=== PATIENT | male | born 1970 | race Caucasian/White ===

== ENCOUNTER 2024-04-06 08:19 | Emergency (ER) | payer BC, SELFPAY ==
[2024-04-06 08:39] VITALS: BP 158/93; PULSE 82; RESP 18; TEMP 36.3; O2SAT 98; BMI 29.8
--- NOTE | 2024-04-06 09:03 | ED.BACK ---
HPI - Back Pain/Injury General Time Seen by Provider: 09:03 Date Seen: 04/06/24 Chief Complaint: Back Injury/Pain Stated Complaint: fall/back pain and spasm Time Seen by Provider: 04/06/24 09:03 Source: patient Mode of arrival: ambulatory Limitations: no limitations History of Present Illness HPI Narrative: Tenzin is a 54-year-old gentleman previously healthy with a history of heterozygous factor 5 who comes to the emergency room with his for evaluation of intense left-sided back pain after a fall 36 hours ago. Tenzin's notes that they were at their cabin in [place] doing some construction this weekend. On Saturday night April 04 patient fell down 3 stairs as he was wearing socks. No prodromal symptoms. He fell hitting the left side of his back causing intense and immediate pain. Denies any head or neck injury. No loss of consciousness. At that time he took ibuprofen and try to stay in bed but eventually needed to go to the ER in [place]. X-rays of the chest and back at that time were negative. He was given hydrocodone and discharged home. Unfortunately, he had continued pain and thus has been using oxycodone and hydroxyzine that his had from a previous illness. He is still experiencing intense moments of spasm and with any coughing has significant discomfort. The majority of pain appears to be on the left side of his mid back. He now notes this pain is radiating around to his front and includes his left upper quadrant. No lower extremity symptoms with the exception of right ankle discomfort that he notes is much less than what he is experiencing in his back. He and his both feel that something is wrong. Patient has had occasional coughing. No vomiting. Patient does chew tobacco. Does not smoke. Occasional alcohol use. present loving and supportive. Related Data Previous Rx's ?Medication ?Instructions ?Recorded oxycodone 5 mg capsule 5 mg PO Q4H PRN pain #30 caps 04/06/24 Allergies Allergy/AdvReac Type Severity Reaction Status Date / Time No Known Drug Allergies Allergy Verified 04/06/24 08:48 Review of Systems Status of ROS: Reports: 10 or more systems reviewed and unremarkable except as noted in History and below Const: Denies: fever or chills Eyes: Denies: change in vision ENMT: Denies: neck pain, throat swelling or nasal congestion Cardio: Denies: chest pain or shortness of breath with exertion Resp: Denies: shortness of breath GI: Reports: abdominal pain; Denies: nausea or vomiting : Denies: painful urination Musculo: Denies: neck pain Allergy/Immuno: Denies: throat swelling Exam Narrative: Exam Narrative: Alert and oriented. Very guarded in any movement. EOM is full. Head is atraumatic normocephalic. No midline cervical tenderness with palpation. Range of motion is full. Heart with regular rate and rhythm and lungs are with very shallow breathing. Very difficult to ascertain good breath sounds. Abdomen is soft. Examination of the back shows superficial abrasion healing on the left shoulder. No thoracic or lumbar discomfort with palpation. Pain appears to be just to the left of ribs 7 through 10. Lower extremities show full movement. Right lower extremity with some edema but patient is able to move ankle without difficulty. No point tenderness over the malleoli bilaterally, Achilles is intact, no point tenderness noted over the base of the 5th metatarsal or navicular. Const: Vital Signs, click to edit/add: Vital Signs - 24 hr 04/06/24 08:39 Temperature 97.3 F L Pulse Rate [Left P ulse Oximeter] 82 Respiratory Rate 18 Blood Pressure [Le ft Upper Arm] 158/93 H Pulse Oximetry 98 Oxygen Delivery Me thod Room Air Documenting provider has reviewed patient's vital signs: yes Course Course ED Course: Differential diagnosis includes but is not limited to pneumothorax, rib fracture, spine fracture, soft tissue injury, injury of the kidney. At this time will place IV and give Toradol 15 mg IV Zofran 4 mg IV and morphine 4 mg IV for discomfort. Patient is scheduled for CT of the chest abdomen pelvis, recon CT of the thoracic and lumbar spine. Reevaluation(s) Reevaluation #1: Patient noted to have relief with morphine and Toradol. Able to tolerate CT. Patient does tell me that he had an x-ray of his right ankle which was negative for fracture. Examination today does not cause me to want to repeat x-ray or obtain CT. Vital Signs Vital signs: Initial Vital Signs Temperature 97.3 F L 04/06/24 08:39 Temperature Source Temporal Artery Scan 04/06/24 08:39 Pulse Rate 82 04/06/24 08:39 Pulse Rhythm Regular 04/06/24 08:39 Pulse Strength 3+ Normal 04/06/24 08:39 Respiratory Rate 18 04/06/24 08:39 Blood Pressure 158/93 H 04/06/24 08:39 Blood Pressure Mean 114 H 04/06/24 08:39 Blood Pressure Position Sitting 04/06/24 08:39 Pulse Oximetry 98 04/06/24 08:39 Oxygen Delivery Method Room Air 04/06/24 08:39 Vital Signs Temperature 97.3 F L 04/06/24 08:39 Pulse Rate 82 04/06/24 08:39 Respiratory Rate 18 04/06/24 08:39 Blood Pressure 158/93 H 04/06/24 08:39 Pulse Oximetry 98 04/06/24 08:39 Oxygen Delivery Method Room Air 04/06/24 08:39 Temperature 97.3 F L 04/06/24 08:39 Pulse Rate 82 04/06/24 08:39 Respiratory Rate 18 04/06/24 08:39 Blood Pressure 158/93 H 04/06/24 08:39 Pulse Oximetry 98 04/06/24 08:39 Oxygen Delivery Method Room Air 04/06/24 08:39 Medications Administered Medications: Discontinued Medications Generic Name Dose Route Start Last Admin Trade Name Freq PRN Reason Stop Dose Admin Dexamethasone 10 mg 04/06/24 12:08 04/06/24 12:20 Dexamethasone 10 Mg/Ml Inj IVP 04/06/24 12:09 10 mg ONCE ONE Administration Hydromorphone HCl 0.5 mg 04/06/24 12:08 04/06/24 12:20 Hydromorphone 0.5 Mg/0.5 Ml Inj IVP 04/06/24 12:09 0.5 mg ONCE ONE Administration Ketorolac Tromethamine 15 mg 04/06/24 09:15 04/06/24 09:44 Ketorolac 15 Mg/Ml Inj IVP 04/06/24 09:16 15 mg ONCE ONE Administration Morphine Sulfate 4 mg 04/06/24 09:15 04/06/24 09:45 Morphine 4 Mg/Ml Inj IVP 04/06/24 09:16 4 mg ONCE ONE Administration Ondansetron HCl 4 mg 04/06/24 09:15 04/06/24 09:45 Ondansetron 2 Mg/Ml Inj IVP 04/06/24 09:16 4 mg ONCE ONE Administration MDM - Back Pain/Injury MDM Narrative Medical decision making narrative: 1. Left-sided posterior rib fractures-identified on CT after normal x-ray at outside facility. No evidence of underlying pneumothorax hemothorax or other intra-abdominal injury. Patient treated with Toradol, Zofran and morphine here in the ED. he was feeling much better. No evidence of pneumonia and O2 saturations are 98% on room air. Prior to discharge patient given dexamethasone 10 mg as an anti-inflammatory as well as Dilaudid 0.5 mg IV. With assistance he is able to move around and get dressed. We discussed importance of deep breathing, using ice instead of heat to his area of discomfort and to stay mobile. Light activity only. Recommend oxycodone 5 mg 1-2 tablets p.o. Q 4-6 hours p.r.n. number 30 with no refills given to this gentleman. After 36 hours he may start ibuprofen 800 mg t.i.d. if needed as his steroid will be wearing off. Recommend trying to wean off the oxycodone. Recommend stool softener to prevent constipation. Seek medical attention for difficulty breathing, hemoptysis and as needed. 2. History of factor 5 Leiden mutation-recommend wearing compression stockings and being active and moving legs while lying down in order to prevent blood clot. Recommend staying well hydrated and pushing fluids. 3. Right ankle injury-previous x-ray negative and today's examination suggest sprain rather than any underlying fracture given negative [place] rules. 4. Disposition-home at this time. Do not drive if using oxycodone. May supplement with hydroxyzine which they have at home 1 tablet 25 mg b.i.d. p.r.n. return for worsening symptoms. Lab Data Attestation: I reviewed the patient's lab results. Labs: Lab Results 04/06/24 Range/Units 09:34 WBC 7.50 (4.50-11.00) K/uL RBC 4.34 (4.30-5.90) m/uL Hgb 14.0 (13.5-17.5) gm/dL Hct 41.3 (37.0-53.0) % MCV 95 (80-100) fL MCH 32 (26-34) pg MCHC 34 (32-36) gm/dL RDW Coeff of Jennie 13.1 (11.5-15.5) % Plt Count 227 (140-440) K/uL Neut % (Auto) 77.9 H (42.0-72.0) % Lymph % (Auto) 12.4 L (20-44) % [place] % (Auto) 7.3 (0.0-11.0) % Eos % (Auto) 1.7 (0.0-7.0) % Baso % (Auto) 0.3 (0.0-3.0) % Neut # (Auto) 5.80 (1.7-7.0) K/uL Lymph # (Auto) 0.90 (0.90-2.90) K/uL [place] # (Auto) 0.50 (0.00-0.90) K/UL Eos # (Auto) 0.13 (0.00-0.50) K/uL Baso # (Auto) 0.02 (0.00-0.30) K/uL Abs Immat Gran (auto) 0.03 (0.00-0.30) K/uL Imm/Tot Granulo (auto) 0.4 % Sodium 136 (135-149) mmol/L Potassium 4.2 (3.6-5.1) mmol/L Chloride 105 (96-114) mmol/L Carbon Dioxide 26 (20-32) mmol/L Anion Gap 5 L (7-15) mEq/L BUN 14 (7-30) mg/dL Creatinine 0.8 (0.5-1.5) mg/dL Estimated Creat Clear 118.56 Estimated GFR 106 ml/min Glucose 102 (60-115) mg/dL Calcium 9.5 (8.4-10.6) mg/dL Total Bilirubin 0.5 (0.1-1.5) mg/dL AST 22 (12-35) U/L ALT 26 (4-50) U/L Alkaline Phosphatase 63 (40-150) U/L Total Protein 7.0 (6.0-8.3) g/dL Albumin 4.3 (3.3-5.0) g/dL Imaging Data CT Chest/Ab/Pelvis: Attestation: I have reviewed the pertinent imaging results. My impression: I do not note any intra-abdominal splenic bleed, pneumothorax or other acute finding. Radiologist's impression: HEST Airway: Normal tracheobronchial tree. Lungs: Mild bibasilar atelectasis. No nodules or masses. No consolidations. Normal appearance of the pulmonary interstitium. Pleura: No pleural effusion. No pneumothorax. Lymph nodes: No thoracic adenopathy. Mediastinum: No pneumomediastinum. No mass. Heart and great vessels: No pericardial effusion. Normal cardiac chamber size. No calcified atherosclerotic plaques. No aortic aneurysm. Normal caliber main pulmonary artery. Chest wall: Normal. No masses. ABDOMEN AND PELVIS Liver: Normal. No mass. Gallbladder and bile ducts: Normal gallbladder. No bile duct dilation. Pancreas: Normal. Spleen: Normal. Adrenal glands: Normal. Kidneys: Normal parenchyma. 1.8 centimeter left parapelvic renal cysts. No solid renal mass. No calculi. No urinary tract dilation. Urinary bladder: Normal. Pelvis: No cyst or mass. Vessels: Normal. Bowel: No dilated or inflamed bowel. Normal appendix. Moderate stool burden. Lymph nodes: No adenopathy. Peritoneum: No ascites. Abdominal wall: No hernia. BONES: Left posterolateral 8th and 9th rib fractures. Fractures are very minimally displaced by less than a full shaft width. No focal bone lesions. IMPRESSION: 1. Minimally displaced acute left posterolateral 8th and 9th rib fractures. 2. No visceral trauma in the chest, abdomen, or pelvis. Thoracic spine, lumbar spine CT: Attestation: I have reviewed the pertinent imaging results. My impression: I do not note any acute fractures Radiologist's impression: Normal alignment. Mild L5-S1 disc degenerative change without endplate remodeling. No facet arthritis. No neural foraminal narrowing. No or central canal stenosis. No destructive bony lesions. For visceral findings, please see same day CT of the chest abdomen and pelvis. No paraspinal or retroperitoneal hematoma. IMPRESSION: No acute or traumatic findings on lumbar spine CT. NDINGS: No thoracic spine fracture. Normal alignment. Mild multilevel disc degenerative change. No facet arthritis. No neural foraminal narrowing. No central canal stenosis. No destructive bony lesions. No paraspinal hematoma. No retroperitoneal hematoma. Further visceral findings, please see same day CT of the chest, abdomen, and pelvis. IMPRESSION: No acute or traumatic findings on thoracic spine CT. Discharge Plan Discharge Clinical Impression: Closed rib fracture Qualifiers: Encounter type: initial encounter Rib fracture type: multiple ribs Laterality: left Qualified Code(s): S22.42XA - Multiple fractures of ribs, left side, initial encounter for closed fracture Patient Disposition: Home w/ Parent or Adult Condition: Improved Additional Instructions: Recommend light activity. Please to not stay in bed for prolonged periods. If you are resting please use compression stocking and move your legs often to prevent blood clots. Stay well hydrated. Ice to area of discomfort. Deep breathing exercises frequently during the day to prevent pneumonia. Return to the emergency room for coughing up blood, difficulty breathing and as needed. For pain: Stop [place]. You may use oxycodone 5 mg tablets 1-2 tablets every 4-6 hours as needed for discomfort. Feel free to cut the tablet in half in order to minimize narcotic use. Start stool softener such as Colace as this medication will likely give you constipation. You may add ibuprofen 800 mg 3 times a day if needed on SaturdayApril 08. If possible taper off the oxycodone and use ibuprofen only as needed. There is an incidental finding of a cyst on your kidney. We have provided a copy of your CT to for you to share with your primary physician. Return to the emergency room as needed. Prescriptions: New oxycodone 5 mg capsule 5 mg PO Q4H PRN (Reason: pain) Qty: 30 0RF Follow Up/Referrals: Provider,Not a Local [Primary Care Provider] - Stand Alone Forms: [facility] [place] Info Instructions
--- NOTE | 2024-04-06 09:15 | CRLHL7_ITS ---
For Patients: As a result of the Century Cures Act, medical imaging exams and procedure reports are released immediately into your electronic medical record. You may view this report before your referring provider. If you have questions, please contact your health care provider. INDICATION: Fell down 3 steps on 04/04/2024, landed on left side, mid back and lower back pain. COMPARISON: None. TECHNIQUE: CT chest, abdomen, and pelvis with contrast. Multiplanar axial, coronal, and sagittal reformats are included. MIP images to improve detection of pulmonary nodules are included. Intravenous contrast: 118 mL Isovue 370. FINDINGS: CHEST Airway: Normal tracheobronchial tree. Lungs: Mild bibasilar atelectasis. No nodules or masses. No consolidations. Normal appearance of the pulmonary interstitium. Pleura: No pleural effusion. No pneumothorax. Lymph nodes: No thoracic adenopathy. Mediastinum: No pneumomediastinum. No mass. Heart and great vessels: No pericardial effusion. Normal cardiac chamber size. No calcified atherosclerotic plaques. No aortic aneurysm. Normal caliber main pulmonary artery. Chest wall: Normal. No masses. ABDOMEN AND PELVIS Liver: Normal. No mass. Gallbladder and bile ducts: Normal gallbladder. No bile duct dilation. Pancreas: Normal. Spleen: Normal. Adrenal glands: Normal. Kidneys: Normal parenchyma. 1.8 centimeter left parapelvic renal cysts. No solid renal mass. No calculi. No urinary tract dilation. Urinary bladder: Normal. Pelvis: No cyst or mass. Vessels: Normal. Bowel: No dilated or inflamed bowel. Normal appendix. Moderate stool burden. Lymph nodes: No adenopathy. Peritoneum: No ascites. Abdominal wall: No hernia. BONES: Left posterolateral 8th and 9th rib fractures. Fractures are very minimally displaced by less than a full shaft width. No focal bone lesions. IMPRESSION: 1. Minimally displaced acute left posterolateral 8th and 9th rib fractures. 2. No visceral trauma in the chest, abdomen, or pelvis. Please note that all CT scans at this facility use dose modulation, iterative reconstruction, and/or weight-based dosing when appropriate to reduce radiation dose to as low as reasonably achievable. Dictated by Debby Wild MD @ 04/06/2024 10:47:07 AM (Electronically Signed)
--- NOTE | 2024-04-06 09:16 | CRLHL7_ITS ---
For Patients: As a result of the Century Cures Act, medical imaging exams and procedure reports are released immediately into your electronic medical record. You may view this report before your referring provider. If you have questions, please contact your health care provider. INDICATION: Fell down 3 steps 04/04/2024. Landed on left side. Mid back and lower back pain. COMPARISON: Same day CT chest abdomen and pelvis TECHNIQUE: CT of the lumbar spine are reconstructed from the same day CT of the chest abdomen and pelvis with contrast. Multiplanar axial, coronal, and sagittal reformats were reconstructed. FINDINGS: No fracture. Normal alignment. Mild L5-S1 disc degenerative change without endplate remodeling. No facet arthritis. No neural foraminal narrowing. No or central canal stenosis. No destructive bony lesions. For visceral findings, please see same day CT of the chest abdomen and pelvis. No paraspinal or retroperitoneal hematoma. IMPRESSION: No acute or traumatic findings on lumbar spine CT. Please note that all CT scans at this facility use dose modulation, iterative reconstruction, and/or weight-based dosing when appropriate to reduce radiation dose to as low as reasonably achievable. Dictated by Debby Wild MD @ 04/06/2024 10:48:49 AM (Electronically Signed)
--- NOTE | 2024-04-06 09:16 | CRLHL7_ITS ---
For Patients: As a result of the Cures Act, medical imaging exams and procedure reports are released immediately into your electronic medical record. You may view this report before your referring provider. If you have questions, please contact your health care provider. INDICATION: Fell down 3 steps on 04/04/2024. Landed on left side. Mid back and lower back pain.. COMPARISON: Same day CT chest abdomen pelvis and CT lumbar spine TECHNIQUE: CT of the thoracic spine was reconstructed from the same day CT of the chest abdomen and pelvis with contrast. Multiplanar axial, coronal, and sagittal reformats were reconstructed. FINDINGS: No thoracic spine fracture. Normal alignment. Mild multilevel disc degenerative change. No facet arthritis. No neural foraminal narrowing. No central canal stenosis. No destructive bony lesions. No paraspinal hematoma. No retroperitoneal hematoma. Further visceral findings, please see same day CT of the chest, abdomen, and pelvis. IMPRESSION: No acute or traumatic findings on thoracic spine CT. Please note that all CT scans at this facility use dose modulation, iterative reconstruction, and/or weight-based dosing when appropriate to reduce radiation dose to as low as reasonably achievable. Dictated by Debby Wild MD @ 04/06/2024 10:50:37 AM (Electronically Signed)
[2024-04-06 09:43] LABS: Basophils Absolute Auto 0.02 K/uL (0.00-0.30); Basophils Percent Auto 0.3 % (0.0-3.0); Eosinophils Absolute Auto 0.13 K/uL (0.00-0.50); Eosinophils Percent Auto 1.7 % (0.0-7.0); Hematocrit 41.3 % (37.0-53.0); Immature Granulocytes Abs Auto 0.03 K/uL (0.00-0.30); Immature Granulocytes Pct Auto 0.4 %; Lymphocytes Percent Auto 12.4 % (20-44); Mean Corpuscular HGB Conc 34 gm/dL (32-36); Mean Corpuscular Hemoglobin 32 pg (26-34); Mean Corpuscular Volume 95 fL (80-100); Monocytes Percent Auto 7.3 % (0.0-11.0); Neutrophils Percent Auto 77.9 % (42.0-72.0); Platelet Count* 227 K/uL (140-440); RDW Coefficient of Variation % 13.1 % (11.5-15.5); Red Blood Count 4.34 m/uL (4.30-5.90)
[2024-04-06] MEDS: KETOROLAC 15 MG/ML inj IVP (09:44)
[2024-04-06 09:45] LABS: Slide Review Reflex No
[2024-04-06] MEDS: MORPHINE 4 MG/ML INJ IVP (09:45)
[2024-04-06] MEDS: ONDANSETRON 2 MG/ML inj 4 MG IVP (09:45)
[2024-04-06 09:59] LABS: Albumin* 4.3 g/dL (3.3-5.0); Chloride* 105 mmol/L (96-114); Potassium* 4.2 mmol/L (3.6-5.1); Sodium* 136 mmol/L (135-149)
[2024-04-06 10:02] LABS: Alanine Aminotransferase* 26 U/L (4-50); Alkaline Phosphatase* 63 U/L (40-150); Anion Gap 5 mEq/L (7-15); Aspartate Amino Transferase* 22 U/L (12-35); Bilirubin Total* 0.5 mg/dL (0.1-1.5); Blood Urea Nitrogen* 14 mg/dL (7-30); Carbon Dioxide* 26 mmol/L (20-32); Creatinine* 0.8 mg/dL (0.5-1.5); Est. Creatinine Clearance* 118.56; Estimated Glomerular Filt Rate 106 ml/min; Glucose* 102 mg/dL (60-115)
[2024-04-06 10:03] LABS: Calcium* 9.5 mg/dL (8.4-10.6)
[2024-04-06] MEDS: dexAMETHasone 10 MG/ML inj IVP (12:20)
[2024-04-06] MEDS: HYDROmorphone 0.5 mg/0.5 ml inj IVP (12:20)
== END 2024-04-06 12:58 | disposition home or self-care (01) ==
PROVIDERS: Emergency Provider Family Medicine
DX: S22.42XA Multiple fractures of ribs, left side, initial encounter for closed fracture (principal)
CPT/HCPCS: 36415; 71260; 72128; 72131; 74177; 80053; 81001; 85025; 96374; 96375; 99284; J1100; J1171; J1885; J2270; J2405; Q9967